=== PATIENT | female | born 1950 | race Caucasian/White ===

== ENCOUNTER 2018-01-21 14:54 | Outpatient (CLI) | payer OTHER | END 2018-01-21 15:05 | disposition home or self-care (01) | LOC: MAMO-SONO 14:54 | DX: Z12.31 Encounter for screening mammogram for malignant neoplasm of breast (principal); Z87.898 Personal history of other specified conditions; R92.0 Mammographic microcalcification found on diagnostic imaging of breast; I10 Essential (primary) hypertension; M81.0 Age-related osteoporosis without current pathological fracture ==

== ENCOUNTER → 2018-02-08 | Outpatient (CLI) | payer OTHER | END | disposition home or self-care (01) | LOC: NUCLEAR 14:00 | DX: M81.0 Age-related osteoporosis without current pathological fracture (principal) ==